=== PATIENT | male | born 1985 | race African-American/Black ===

== ENCOUNTER 2021-04-01 09:17 | Emergency (ER) | payer MEDICAID ==
[~2021-04-01] VITALS: Ht 162.6 cm; Wt 82.0 kg
[~2021-04-01 09:17] MED LIST: FAMO40TA70 MT; ONDA4TAB11 PO
[2021-04-01] MEDS ORDERED: ACETAMINOPHEN 325MG TABLET PO ONE (09:45)
[2021-04-01] MEDS ORDERED: TOPUD PO (11:10)
[2021-04-01 11:34] VITALS: BP 130/78
== END 2021-04-01 11:47 | disposition home or self-care (01) ==
LOC: ER 09:17
DX: S00.83XA Contusion of other part of head, initial encounter (principal); S10.83XA Contusion of other specified part of neck, initial encounter; Y07.6 Multiple perpetrators of maltreatment and neglect; Y04.2XXA Assault by strike against or bumped into by another person, initial encounter; Y93.89 Activity, other specified; Y92.018 Other place in single-family (private) house as the place of occurrence of the external cause
CPT/HCPCS: 70486; 99284

== ENCOUNTER 2023-05-11 20:43 | Emergency (ER) | payer MEDICAID ==
[~2023-05-11] VITALS: Ht 167.6 cm; Wt 100.0 kg
[~2023-05-11 20:43] MED LIST changes: +TOPUD PO
[2023-05-11 21:14] VITALS: O2SAT 99
[2023-05-11] MEDS ORDERED: METOCLOPRAMIDE HCL 5MG TABLET PO ONE (21:30)
[2023-05-11] MEDS: KETOROLAC 15MG/ML VIAL IM ONE (21:56)
[2023-05-11] MEDS: METOCLOPRAMIDE HCL 10MG TABLET PO NR (21:58)
[2023-05-11] MEDS ORDERED: NAPR-1176 MT (22:43)
[2023-05-11 22:56] VITALS: BP 130/85; PULSE 74; RESP 18; TEMP 98.5
== END 2023-05-11 22:58 | disposition home or self-care (01) ==
LOC: ER 20:43
DX: S06.0X0A Concussion without loss of consciousness, initial encounter (principal); W18.39XA Other fall on same level, initial encounter; Y93.89 Activity, other specified; Y92.89 Other specified places as the place of occurrence of the external cause; Y99.8 Other external cause status
CPT/HCPCS: 99283; 96372; J8597; J1885